=== PATIENT | male | born 1930 | race Caucasian/White ===

== ENCOUNTER 2017-12-31 13:42 | Emergency (ER) | payer MEDICARE, OTHER ==
[~2017-12-31] VITALS: Ht 172.7 cm; Wt 72.6 kg
--- NOTE | 2017-12-31 14:00 | NUR ---
NITHIN : Jess (from [facility]) telephone # [phone].
[2017-12-31] MEDS ORDERED: CHOL100045 PO (14:04)
[2017-12-31] MEDS ORDERED: AMLO5TAB2 PO (14:04)
[2017-12-31] MEDS ORDERED: DOCU100C22 PO (14:04)
[2017-12-31] MEDS ORDERED: OLAN2.5T3 PO (14:04)
[2017-12-31] MEDS ORDERED: ATOR10TA PO (14:04)
[2017-12-31] MEDS ORDERED: TAMS-3 PO (14:04)
[2017-12-31] MEDS ORDERED: LEVE500T20 PO (14:04)
[2017-12-31] MEDS ORDERED: ACET-2067 PO (14:04)
[2017-12-31] MEDS ORDERED: TEMA15CA PO (14:04)
[2017-12-31] MEDS ORDERED: HYDR25TA4 PO (14:04)
[2017-12-31] MEDS ORDERED: ATEN25TA PO (14:04)
[2017-12-31] MEDS ORDERED: OMEP20CA10 PO (14:04)
[2017-12-31] MEDS ORDERED: IV NORMAL SALINE 500 ML BAG IV ONE (14:15)
[2017-12-31 14:37] LABS: BASOPHILS % (AUTO) 0.4 % (0.0-2.0); EOSINOPHILS # (AUTO) 0.2 K/uL (0.0-0.7); EOSINOPHILS % (AUTO) 1.8 % (0.0-7.0); HEMATOCRIT 34.4 % (36.7-47.1); HEMOGLOBIN 11.6 g/dL (12.5-16.3); LYMPHOCYTES # (AUTO) 0.6 K/uL (20.0-40.0); LYMPHOCYTES % (AUTO) 7.2 % (20.5-51.5); MEAN CORPUSCULAR HEMOGLOBIN 30.4 uug (23.8-33.4); MEAN CORPUSCULAR HGB CONC 34 g/dL (32.5-36.3); MEAN CORPUSCULAR VOLUME 90.5 fL (73.0-96.2); MONOCYTES # (AUTO) 0.7 K/uL (2.0-10.0); MONOCYTES % (AUTO) 7.9 % (0.0-11.0); NEUTROPHILS % (AUTO) 82.7 % (38.5-71.5); PLATELET COUNT (AUTO) 154 K/uL (152-348); WHITE BLOOD COUNT (AUTO) 8.4 K/uL (3.6-10.2)
[2017-12-31 14:46] LABS: ALANINE AMINOTRANSFERASE 18 U/L (16-63); ALKALINE PHOSPHATASE 106 U/L (50-136); ASPARTATE AMINOTRANSFERASE 12 U/L (15-37); BILIRUBIN,DIRECT 0.1 mg/dL (0.0-0.2); BILIRUBIN,TOTAL 0.4 mg/dL (0.2-1.0); CARBON DIOXIDE 27 mmol/L (21-32); CHLORIDE 104 mmol/L (98-107); CREATININE 1.4 mg/dL (0.6-1.3); GLUCOSE 150 mg/dL (74-106); LIPASE 305 U/L (73-393); POTASSIUM 3.7 mmol/L (3.5-5.1); TOTAL PROTEIN, SERUM 7.4 g/dL (6.4-8.2); UREA NITROGEN, BLOOD 42 mg/dL (7-18)
[2017-12-31 14:47] LABS: *BILIRUBIN,URIN NEGATIVE (NEGATIVE); *BLOOD, URINE NEGATIVE (NEGATIVE); *CLARITY,URINE CLEAR (CLEAR); *COLOR,URINE YELLOW (YELLOW); *KETONES,URINE NEGATIVE (NEGATIVE); *PROTEIN,URINE TRACE (NEGATIVE); *UROBILINOGEN,URINE 0.2 E.U./dl (NORMAL); LEUKOCYTE ESTERASE ,URINE NEGATIVE (NEGATIVE); NITRITE, URINE NEGATIVE (NEGATIVE); PH,URINE 5.5 (5.0-8.0); UGLUCOSE NEGATIVE (NEGATIVE)
[2017-12-31 14:55] LABS: BACTERIA,URINE NONE SEEN /HPF (NONE SEEN); RBC,URINE 0-3 /HPF (0-3); SQUAMOUS EPITHELIAL CELL,UR FEW /HPF (NONE SEEN); WBC,URINE 0-3 /HPF (0-3)
[2017-12-31] MEDS ORDERED: FUROSEMIDE 20 MG/2 ML VIAL IV ONE (16:00)
[2017-12-31] MEDS ORDERED: FUROSEMIDE 40 MG/4 ML VIAL ONE (16:08)
--- NOTE | 2017-12-31 16:11 | NUR ---
monica matias called back. monica will arrange the transfer back to [facility].
--- NOTE | 2017-12-31 16:26 | NUR ---
Spoke with [facility] who stated that [facility] was contacted for BLS transport, Authorization #[id number], ETA 60 minutes.
--- NOTE | 2017-12-31 17:01 | NUR ---
pt diaper soiled with urine, perineal hygiene provided.
--- NOTE | 2017-12-31 18:01 | NUR ---
prn ambulance at bedside to take the pt back to home at [address] [place], [id number]. Patient discharged to home in stable conditon. Written and verbal after care instructions given. Patient verbalizes understanding of instructions.pt says feels better, prt deneis any nausea at this time.
[2017-12-31 18:04] VITALS: BP 136/68
== END 2017-12-31 18:12 | disposition home or self-care (01) ==
LOC: ER 13:44
DX: R11.10 Vomiting, unspecified (principal); I11.0 Hypertensive heart disease with heart failure; I50.9 Heart failure, unspecified; Z79.899 Other long term (current) drug therapy
CPT/HCPCS: 36415; 70030-TC; 71045; 83690; 85025; 85730; 87086; 93005; A4663; J1940; J7030